=== PATIENT | female | born 1995 | race Caucasian/White ===

== ENCOUNTER 2017-06-11 09:55 | Inpatient (IN) | payer OTHER ==
[2017-06-11] MEDS ORDERED: ELECTROLYTE-148 SOLN 500 ML IV SCH ×2 (10:00→11:00)
[2017-06-11 10:50] VITALS: BMI 26.9
[2017-06-11] MEDS ORDERED: FENTANYL/BUPIVACAINE/NS/PF - PCEA - 50 ML DISP.SYRIN EP SCH (11:05)
[2017-06-11 11:41] LABS: BASOPHIL 0.2 % (0-2.0); RDW 13.5 % (11.6-15.6)
[2017-06-11 11:57] LABS: MCH 31.4 pg (25.7-33.7); MCHC 33.6 g/dl (32.0-36.0); MEAN CELL VOLUME 93.3 fl (80-96); MEAN PLT VOLUME 8.7 fl (7.5-11.1); NEUTROPHILS 87.9 % (42.8-82.8); PLATELET COUNT 159 K/MM3 (134-434)
[2017-06-11 11:58] LABS: ANION GAP 12 (8-16); CALCIUM 9.6 mg/dL (8.5-10.1); CO2 21 mmol/L (21-32); CREATININE 0.7 mg/dL (0.55-1.02); GLUCOSE,RANDOM 124 mg/dL (74-106)
[2017-06-11 12:10] LABS: INR 0.99 (0.82-1.09); PROTHROMBIN TIME (PATIENT) 10.9 SEC (9.98-11.88)
[2017-06-11 12:13] LABS: ACTIVATED PTT 26.9 SECONDS (26.9-34.4)
[2017-06-11 12:16] LABS: URINE MARIJUANA THC NEGATIVE ng/ml (CUTOFF=50)
[2017-06-11] MEDS ORDERED: ELECTROLYTE-148 SOLN 1,000 ML IV SCH (16:15)
--- NOTE | 2017-06-11 16:20 | HP ---
Past Medical History - Admission Chief Complaint: Labor pain History of Present Illness: 21 yo , @ 39 weeks gestation, EDC 06/14/17, admitted for Labor pain. She denies any vaginal bleeding nor ROM. History Source: Patient Limitations to Obtaining History: No Limitations - Past Medical History ...: 2 ...Para: 0 ...Term: 0 ...: 0 ...Spon : 0 ...Induced : 0 ...Multiple Gestation: 0 ...LMP: 08/30/16 ... Weeks Gestation by Dates: 40.5 ...EDC by Dates: 06/06/17 ...EDC by Sono: 06/14/17 - Past Surgical History Past Surgical History: Yes: None Hx Myomectomy: No Hx Transabdominal Cerclage: No - Smoking History Smoking history: Never smoked Have you smoked in the past 12 months: No Aproximately how many cigarettes per day: 1 - Alcohol/Substance Use Hx Alcohol Use: No History of Substance Use: reports: None - Social History Usual Living Arrangement: Yes: With Significant Other History of Recent Travel: No Home Medications - Allergies Allergies/Adverse Reactions: Allergies Allergy/AdvReac Type Severity Reaction Status Date / Time ibuprofen Allergy Intermediate Rash Verified 06/11/17 10:51 - Home Medications Home Medications: Ambulatory Orders Ferrous Sulfate [Feosol] 1 tab PO DAILY 05/21/17 Vit/Iron Fumarate/FA [ Tablet] 1 each PO DAILY 05/21/17 Family Disease History - Family Disease History Family History: Unremarkable Review of Systems - Review of Systems Constitutional: reports: No Symptoms Eyes: reports: No Symptoms HENT: reports: No Symptoms Neck: reports: No Symptoms Cardiovascular: reports: No Symptoms Respiratory: reports: No Symptoms Gastrointestinal: reports: No Symptoms Genitourinary: reports: Pain Breasts: reports: No Symptoms Reported Musculoskeletal: reports: No Symptoms Integumentary: reports: No Symptoms Neurological: reports: No Symptoms Endocrine: reports: No Symptoms Hematology/Lymphatic: reports: No Symptoms Psychiatric: reports: No Symptoms Pain Intensity: 4 Physical Exam - Maternity Vital Signs: Vital Signs Temperature 99.2 F 06/11/17 14:45 Pulse Rate 97 H 06/11/17 16:00 Respiratory Rate 20 06/11/17 16:00 Blood Pressure 129/79 06/11/17 16:00 O2 Sat by Pulse Oximetry (%) 100 06/11/17 15:00 Constitutional: Yes: Well Nourished Eyes: Yes: Conjunctiva Clear HENT: Yes: Atraumatic Neck: Yes: Supple, Trachea Midline Cardiovascular: Yes: Regular Rate and Rhythm Lungs: Clear to auscultation - Abdominal Exam/OB Number of Fetuses: Single Presentation: Vertex - Vaginal Exam/OB Vaginal Bleediing: No Dilatation (cm): 4 Effacement (%): 100 Amniotic Membrane Status: Intact - Labs Lab Results: CBC, BMP 06/11/17 11:30 06/11/17 11:30 Problem List - Problems (1) Pain during labor Code(s): O99.89 - OTH DISEASES AND CONDITIONS COMPL PREG/CHLDBRTH R52 - PAIN, UNSPECIFIED Assessment/Plan IUP @ term Active labor Admit to L&D Anticipate
[2017-06-11] MEDS ORDERED: OXYTOCIN 15 UNITS/ LR 250 ML 250 ML IVPB SCH (16:30)
[2017-06-11] MEDS ORDERED: BISACODYL 10 MG SUPP.RECT RC PRN (19:53)
[2017-06-11] MEDS ORDERED: WITCH HAZEL 50% (TUCKS) 40 PAD/JAR PAD TP PRN (19:53)
[2017-06-11] MEDS ORDERED: BENZOCAINE 28 GM HEMORRHOIDAL OINTMENT TP PRN (19:53)
[2017-06-11] MEDS ORDERED: BENZOCAINE 20% 57 GM BOTTLE TP PRN (19:53)
[2017-06-11] MEDS ORDERED: METHYLERGONOVINE MALEATE 0.2 MG/1 ML AMP IM PRN (19:53)
--- NOTE | 2017-06-11 19:59 | PN ---
Delivery - Delivery Vaginal Delivery: Spontaneous Type of Anesthesia: Epidural Episiotomy/Laceration: Midline EBL (cc): 300 Delivery, Single - Feeding Plan Initial Plan: Elected not to breastfeed exclusively throughout hospitalization Remarks - Remarks Remarks: Normal spontaneous vaginal delivery of a live infant boy over midline episiotomy. Nose / Oropharynx suctioned @ perineum. Nuchal cord x 1 cut and clamped. Placenta expelled spontaneously intact. Episiotomy repaired with 2.0 Chromic.
[2017-06-11] MEDS ORDERED: D5W-LR W/ 20 UNITS OXYTOCIN 1,000 ML IV SCH (20:00)
--- NOTE | 2017-06-11 20:02 | DS ---
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: Vital Signs Temperature 100.0 F H 06/11/17 18:30 Pulse Rate 121 H 06/11/17 18:45 Respiratory Rate 20 06/11/17 18:45 Blood Pressure 162/78 06/11/17 18:45 O2 Sat by Pulse Oximetry (%) 100 06/11/17 15:00 Constitutional: Yes: Well Nourished Eyes: Yes: Conjunctiva Clear HENT: Yes: Atraumatic Neck: Yes: Supple Cardiovascular: Yes: Regular Rate and Rhythm Respiratory: Yes: Regular, CTA Bilaterally Gastrointestinal: Yes: Normal Bowel Sounds ...Rectal Exam: Yes: WNL Renal/: Yes: WNL Pelvis: Yes: WNL External Genitalia: Yes: Normal Vaginal Exam: Yes: Normal ....Post : Yes: Uterus firm, Moderate lochia serosa Breast(s): Yes: WNL Neurological: Yes: Alert, Oriented ...Motor Strength: WNL Psychiatric: Yes: Alert, Oriented Labs: CBC, BMP 06/11/17 11:30 06/11/17 11:30 Delivery - Delivery Vaginal Delivery: Spontaneous Type of Anesthesia: Epidural Episiotomy/Laceration: Midline EBL (cc): 300 Delivery, Single - 1 Minute Total Score: 8 5 Minutes Total Score: 9 - [place] Feeding Plan Initial Plan: Elected not to breastfeed exclusively throughout hospitalization Discharge Summary Reason For Visit: LABOR Current Active Problems Pain during labor (Acute) Procedures: Principal: Normal spontaneous vaginal delivery Hospital Course: Routine care Condition: Good - Instructions Diet, Activity, Other Instructions: Regular diet No douching, no sexual intercourse x 6 weeks Disposition: HOME - Home Medications Comprehensive Discharge Medication List: Ambulatory Orders Ferrous Sulfate [Feosol] 1 tab PO DAILY 05/21/17 Vit/Iron Fumarate/FA [ Tablet] 1 each PO DAILY 05/21/17
[2017-06-11] MEDS: ACETAMINOPHEN 325 MG TABLET (FP) PO PRN (22:01)
[2017-06-12] MEDS: ACETAMINOPHEN 325 MG TABLET (FP) PO PRN ×4 (04:39→18:57)
--- NOTE | 2017-06-12 07:10 | PN ---
Post Progress Note - Subjective Subjective: 21 yo Para 1 status post normal vaginal delivery, seen and evaluated. Doing well. No complaints. Post Day: 1 Type of Delivery: Vital Signs: Vital Signs Temperature 98.3 F 06/12/17 04:48 Pulse Rate 86 06/12/17 04:48 Respiratory Rate 20 06/12/17 04:48 Blood Pressure 117/78 06/12/17 04:48 O2 Sat by Pulse Oximetry (%) 100 06/11/17 21:15 Uterus: Yes: Fundus Firm Abdomen/GI: Yes: Abdomen soft Lochia: Yes: Rubra Lochia, amount: Moderate Extremities: Yes: Calves non-tender Perineum: Yes: Episiotomy Activity: Ambulating - Labs Labs: CBC WBC 15.0 K/mm3 (4.0-10.0) H D 06/11/17 11:30 RBC 4.41 M/mm3 (3.60-5.2) 06/11/17 11:30 Hgb 13.8 GM/dL (10.7-15.3) D 06/11/17 11:30 Hct 41.1 % (32.4-45.2) D 06/11/17 11:30 MCV 93.3 fl (80-96) 06/11/17 11:30 MCH 31.4 pg (25.7-33.7) 06/11/17 11:30 MCHC 33.6 g/dl (32.0-36.0) 06/11/17 11:30 RDW 13.5 % (11.6-15.6) 06/11/17 11:30 Plt Count 159 K/MM3 (134-434) D 06/11/17 11:30 MPV 8.7 fl (7.5-11.1) D 06/11/17 11:30 Neutrophils % 87.9 % (42.8-82.8) H 06/11/17 11:30 Lymphocytes % 6.7 % (8-40) L 06/11/17 11:30 Monocytes % 5.2 % (3.8-10.2) 06/11/17 11:30 Eosinophils % 0.0 % (0-4.5) D 06/11/17 11:30 Basophils % 0.2 % (0-2.0) 06/11/17 11:30 Problem List - Problems (1) Pain during labor Code(s): O99.89 - OTH DISEASES AND CONDITIONS COMPL PREG/CHLDBRTH R52 - PAIN, UNSPECIFIED (2) Status post normal vaginal delivery Code(s): [id number] - Assessment/Plan Status post Stable Continue routine care
[2017-06-12 07:22] LABS: EOSINOPHIL 0.1 % (0-4.5); MCH 31.3 pg (25.7-33.7); MCHC 33.5 g/dl (32.0-36.0); MEAN CELL VOLUME 93.4 fl (80-96); MEAN PLT VOLUME 8.8 fl (7.5-11.1); NEUTROPHILS 80.1 % (42.8-82.8); PLATELET COUNT 134 K/MM3 (134-434); RDW 13.6 % (11.6-15.6); WHITE BLOOD COUNT 19.1 K/mm3 (4.0-10.0)
[2017-06-12] MEDS: FERROUS SO4 325 MG TABLET (FP) PO SCH ×3 (09:20→18:53)
[2017-06-12] MEDS: PRENATAL VITAMINS W/ FOLIC ACID TABLET (FP) PO SCH (09:20)
[2017-06-12] MEDS ORDERED: SENNOSIDES/DOCUSATE COMBO (SENNA PLUS) TABLET (UD) PO PRN (22:00)
[2017-06-13] MEDS: ACETAMINOPHEN 325 MG TABLET (FP) PO PRN ×2 (02:49→09:35)
--- NOTE | 2017-06-13 08:30 | PN ---
Post Progress Note - Subjective Subjective: Status post vaginal delivery. Doing well, no complaints. Post Day: 2 Type of Delivery: Vital Signs: Vital Signs Temperature 98.1 F 06/12/17 20:48 Pulse Rate 75 06/12/17 20:48 Respiratory Rate 20 06/12/17 20:48 Blood Pressure 130/79 06/12/17 20:48 O2 Sat by Pulse Oximetry (%) 100 06/11/17 21:15 Breast Exam: Yes: Soft Uterus: Yes: Fundus Firm Abdomen/GI: Yes: Abdomen soft, Tolerating PO Lochia: Yes: Rubra Lochia, amount: Moderate Extremities: Yes: Calves non-tender Perineum: Yes: Episiotomy (Healing wound) Activity: Ambulating - Labs Labs: CBC WBC 19.1 K/mm3 (4.0-10.0) H 06/12/17 06:00 RBC 4.22 M/mm3 (3.60-5.2) 06/12/17 06:00 Hgb 13.2 GM/dL (10.7-15.3) 06/12/17 06:00 Hct 39.4 % (32.4-45.2) 06/12/17 06:00 MCV 93.4 fl (80-96) 06/12/17 06:00 MCH 31.3 pg (25.7-33.7) 06/12/17 06:00 MCHC 33.5 g/dl (32.0-36.0) 06/12/17 06:00 RDW 13.6 % (11.6-15.6) 06/12/17 06:00 Plt Count 134 K/MM3 (134-434) 06/12/17 06:00 MPV 8.8 fl (7.5-11.1) 06/12/17 06:00 Neutrophils % 80.1 % (42.8-82.8) 06/12/17 06:00 Lymphocytes % 8.7 % (8-40) D 06/12/17 06:00 Monocytes % 11.1 % (3.8-10.2) H D 06/12/17 06:00 Eosinophils % 0.1 % (0-4.5) D 06/12/17 06:00 Basophils % 0.0 % (0-2.0) 06/12/17 06:00 Problem List - Problems (1) Pain during labor Code(s): O99.89 - OTH DISEASES AND CONDITIONS COMPL PREG/CHLDBRTH R52 - PAIN, UNSPECIFIED (2) Status post normal vaginal delivery Code(s): [id number] - Assessment/Plan Status post Stable D/C Home
[2017-06-13] MEDS: PRENATAL VITAMINS W/ FOLIC ACID TABLET (FP) PO SCH (09:34)
[2017-06-13] MEDS: FERROUS SO4 325 MG TABLET (FP) PO SCH ×2 (09:34→12:24)
[2017-06-13] MEDS ORDERED: ceFAZolin 2 GRAM PREMIX BAG IVPB ONE (10:45)
[2017-06-13] MEDS ORDERED: CEFAZOLIN 2 GM/D5W 50 ML IVPB ONE (10:45)
[2017-06-13 10:57] VITALS: BP 112/74; PULSE 72; TEMP 98.3
== END 2017-06-13 12:35 | disposition home or self-care (01) | DRG 560 ==
LOC: JLDR 09:55 → J3W 23:08
PROVIDERS: ADMIT Obstetrics & Gynecology; ATTEND Obstetrics & Gynecology
PROC: 10E0XZZ Delivery of Products of Conception, External Approach (ICD-10-PCS; principal; 2017-06-11)
PROC: 0W8NXZZ Division of Female Perineum, External Approach (ICD-10-PCS; 2017-06-11)
DX: O80 Encounter for full-term uncomplicated delivery (principal); Z3A.39 39 weeks gestation of pregnancy; Z37.0 Single live birth
CPT/HCPCS: 36415; 59409; 74020-TC; 80048; 80307; 85025; 85610; 85730; 86593; 86850; 86900; 86901

== ENCOUNTER 2017-12-19 09:19 | Emergency (ER) | payer OTHER ==
[2017-12-19 09:28] VITALS: BP 135/68; PULSE 110; TEMP 98.1; BMI 23.4
--- NOTE | 2017-12-19 09:46 | PDOC ---
History of Present Illness - General Chief Complaint: Rash Stated Complaint: RASH Time Seen by Provider: 12/19/17 09:39 History Source: Patient Exam Limitations: No Limitations - History of Present Illness Initial Comments: 12/19/17 11:48 This 22-year-old female presents to the emergency room with hives throughout her body. She was initially seen 2 days ago and was given Zyrtec for hives however this does not seem to have helped it at all. She has not given any medications. She has no tongue swelling or feeling of shortness of breath or wheezing. She does not recall what she may have been exposed to to cause of this ALLERGY reaction. She states it's been itchy and the Zyrtec is not helping that much and she sees hives or developing further from head to toe. Past History - Past Medical History Allergies/Adverse Reactions: Allergies Allergy/AdvReac Type Severity Reaction Status Date / Time ibuprofen Allergy Intermediate Rash Verified 12/19/17 09:28 Home Medications: Ambulatory Orders Ferrous Sulfate [Feosol] 1 tab PO DAILY 05/21/17 Vit/Iron Fum/Folic AC [ Tablet] 1 each PO DAILY 05/21/17 Diphenhydramine HCl [Benadryl -] 25 mg PO Q6H PRN #28 capsule 12/19/17 Methylprednisolone [Medrol Dose Elia] 4 mg PO ASDIR #21 tablet 12/19/17 Asthma: No Cancer: No Cardiac Disorders: No COPD: No Diabetes: No HTN: No Seizures: No Thyroid Disease: No - Suicide/Smoking/Psychosocial Hx Smoking History: Never smoked Have you smoked in the past 12 months: No Number of Cigarettes Smoked Daily: 1 Information on smoking cessation initiated: No Hx Alcohol Use: No Drug/Substance Use Hx: No Substance Use Type: None Hx Substance Use Treatment: No Review of Systems - Review of Systems Able to Perform ROS?: Yes Comments:: 12/19/17 11:50 General statement: Having a rash throughout Hematology: neg history of bleeding/blood thinners Skin: Neg for lesions, bruising. Positive rash HEENT: Neg symptoms Respiratory: Neg SOB or difficulty in breathing Cardiac: Neg chest pain GI: Neg pain, n/v : Neg problems on voiding MS: Neg for joint pain/stiffness, no edema Neuro: Neg for LOC, weakness, Endocrine: Neg for excess thirst/hunger, cold/heat intolerance, excess sweating Allergies: Neg for allergies *Physical Exam - Vital Signs Last Vital Signs Temp Pulse Resp BP Pulse Ox 98.1 F 110 H 20 135/68 99 12/19/17 09:25 12/19/17 09:25 12/19/17 09:25 12/19/17 09:25 12/19/17 09:25 - Physical Exam Comments: 12/19/17 11:51 General Appearance: This well appearing 22-year-old female V/S: hemodynamically stable, afebrile Skin: WNL of pt's skin color, no signs of pallor, mottling, cyanosis positive rash lash hives Head:symmetrical Eyes: EOM's intact, PERRLA Ears: denies pain Nose: patent Throat: lips, teeth, gums, tongue, buccal mucos pink and moist Lungs: Chest symmetry equal. Cap refill <3 seconds. Lung sounds clear Cardiac: PMI at R 4MCL space, pos S1 and S2, regular rate. Abdomen: Soft, round, nontender : Not observed Muscularskeletal: Gait steady, ambulated in to ER, no edema +PMS Neuro: AAOx3, cognitively intact, speech clear and appropriate. Medical Decision Making - Medical Decision Making 12/19/17 11:51 Patient initially seen and examined. Noted to be a hives throughout the body noted to be an ALLERGIC reaction at this time of ordered her a Medrol Dosepak as well as some Benadryl for the hives. *DC/Admit/Observation/Transfer Diagnosis at time of Disposition: Full body hives - Discharge Dispostion Disposition: HOME Condition at time of disposition: Stable Admit: No - Prescriptions Prescriptions: Diphenhydramine HCl [Benadryl -] 25 mg PO Q6H PRN #28 capsule PRN Reason: For Itching Methylprednisolone [Medrol Dose Elia] 4 mg PO ASDIR #21 tablet - Referrals - Patient Instructions Printed Discharge Instructions: DI for Hives Additional Instructions: Discharge instructions 1. Please follow up with your primary physician within the next few days and explain that you have been seen here in the Emergency Room. 2. If you experience any worsening of symptoms, please return to the ER 3. Rest, avoid new skin soap or laundry detergents 4. Drink plenty of water Take steriods as prescribed. - Post Discharge Activity
== END 2017-12-19 09:53 | disposition home or self-care (01) ==
LOC: JERFT 09:19
DX: L50.0 Allergic urticaria (principal); T78.49XA Other allergy, initial encounter
CPT/HCPCS: 99281-25